=== PATIENT | male | born 1995 | race African-American/Black ===

== ENCOUNTER 2016-10-15 01:06 | Emergency (ER) | payer MEDICAID ==
[2016-10-15 06:35] VITALS: BP 130/73
== END 2016-10-15 06:35 | disposition home or self-care (01) ==
LOC: ED 01:06
DX: S30.0XXA Contusion of lower back and pelvis, initial encounter (principal); S20.229A Contusion of unspecified back wall of thorax, initial encounter; W17.89XA Other fall from one level to another, initial encounter; Y93.89 Activity, other specified; Y99.8 Other external cause status; Y92.89 Other specified places as the place of occurrence of the external cause
CPT/HCPCS: 72072; J1170; J1885; Q0162

== ENCOUNTER 2018-11-16 14:50 | Emergency (ER) | payer MEDICAID ==
[~2018-11-16] VITALS: Ht 177.8 cm; Wt 117.0 kg
[2018-11-16 15:00] VITALS: Ht 177.8 cm; Wt 117.0 kg
[2018-11-16 16:28] VITALS: BP 119/71
== END 2018-11-16 16:28 | disposition home or self-care (01) ==
LOC: ED 14:50
DX: S62.301A Unspecified fracture of second metacarpal bone, left hand, initial encounter for closed fracture (principal); W51.XXXA Accidental striking against or bumped into by another person, initial encounter; Y93.67 Activity, basketball; Y92.310 Basketball court as the place of occurrence of the external cause; Y99.8 Other external cause status

== ENCOUNTER 2020-02-02 04:17 | Emergency (ER) | payer SELFPAY ==
[~2020-02-02] VITALS: Ht 175.3 cm; Wt 123.0 kg
[2020-02-02 04:26] VITALS: Ht 175.3 cm; Wt 123.0 kg
[2020-02-02 06:22] VITALS: BP 127/86
== END 2020-02-02 06:22 | disposition home or self-care (01) ==
LOC: ED 04:17
DX: R07.89 Other chest pain (principal)
CPT/HCPCS: Q0092

== ENCOUNTER 2020-02-07 03:19 | Emergency (ER) | payer SELFPAY ==
[~2020-02-07] VITALS: Ht 177.8 cm; Wt 123.4 kg
[2020-02-07 03:36] VITALS: Ht 177.8 cm; Wt 123.4 kg
[2020-02-07 04:57] VITALS: BP 148/96
[2020-02-08 08:06] LABS: RAPID PLASMA REAGIN Non Reactive (Non Reactive)
== END 2020-02-07 04:57 | disposition home or self-care (01) ==
LOC: ED 03:19
PROVIDERS: Emergency Medicine
DX: A56.8 Sexually transmitted chlamydial infection of other sites (principal)
CPT/HCPCS: 87491; 87591; J0696